=== PATIENT | male | born 1945 | race Caucasian/White ===

== ENCOUNTER 2017-03-05 08:45 | Day surgery (SDC) | payer MEDICARE, BC ==
[~2017-03-05] VITALS: Ht 170.2 cm; Wt 87.2 kg
[~2017-03-05 08:45] MED LIST: ASPI-496 PO; BACITRACIN 50,000 UNIT ONE; BUPIVACAINE/PF 0.5% ONE; EPINEPHRINE 1 MG/ML, 1ML ONE; LISI-167 PO; MULT1TAB13 PO; THROMBIN 5,000 UNIT VIAL TP ONE; VANCOMYCIN 1,000 MG ONE
[2017-03-05 09:06] VITALS: BP 150/88
[2017-03-05] MEDS ORDERED: LACTATED RINGERS 1,000 ML IV SCH (09:06)
[2017-03-05] MEDS ORDERED: FENTANYL PF 100 MCG/2ML ONE ×3 (12:20→14:30)
[2017-03-05] MEDS ORDERED: MIDAZOLAM 1 MG/ML, 2ML ONE (12:20)
[2017-03-05] MEDS ORDERED: CEFAZOLIN 1,000 MG ONE (13:00)
[2017-03-05] MEDS ORDERED: ROCURONIUM 10 MG/ML ONE (13:00)
[2017-03-05] MEDS ORDERED: PROPOFOL 10 MG/ML, 20ML ONE (13:00)
[2017-03-05] MEDS ORDERED: DEXAMETHASONE 4 MG/ML, 5ML ONE (13:00)
[2017-03-05] MEDS ORDERED: PHENYLEPHRINE 10 MG/ML ONE (13:00)
[2017-03-05] MEDS ORDERED: EPINEPHRINE 1 MG/ML, 1ML INFIL ONE (13:29)
[2017-03-05] MEDS ORDERED: BUPIVACAINE/PF 0.5% INFIL ONE (13:29)
[2017-03-05] MEDS ORDERED: HYDROmorphone 1 MG/ML, 1ML IV PRN (14:00)
[2017-03-05] MEDS ORDERED: hydrALAzine 20 MG/ML, 1ML IV PRN (14:00)
[2017-03-05] MEDS ORDERED: MEPERIDINE/PF 25MG/0.5ML IVPush PRN (14:00)
[2017-03-05] MEDS ORDERED: ACETAMINOPHEN 325 MG TABLET PO PRN (14:00)
[2017-03-05] MEDS ORDERED: OXYcodone 5 MG/5 ML ORAL.SOL UDC PO PRN (14:00)
[2017-03-05] MEDS ORDERED: FENTANYL PF 100 MCG/2ML IV PRN (14:00)
[2017-03-05] MEDS ORDERED: ONDANSETRON 2MG/ML, 2ML IVPush PRN (14:00)
[2017-03-05] MEDS ORDERED: PROMETHAZINE 25 MG/ML, 1ML IV PRN (14:00)
[2017-03-05] MEDS ORDERED: OXYcodone 5 MG/5 ML ORAL.SOL UDC ONE (14:31)
[2017-03-05] MEDS ORDERED: ACETAMINOPHEN 650 MG/20.3 ML UDC ONE (14:31)
[2017-03-05] MEDS: LABETALOL 5MG/ML, 20ML IV PRN ×2 (14:46→14:51)
[2017-03-05] MEDS ORDERED: hydrALAzine 20 MG/ML, 1ML ONE (15:02)
== END 2017-03-05 17:40 ==
LOC: OUT 08:45
PROVIDERS: ATTEND Neurological Surgery
DX: M48.06 Spinal stenosis, lumbar region (principal); M54.16 Radiculopathy, lumbar region; I10 Essential (primary) hypertension; Z79.82 Long term (current) use of aspirin; Z72.89 Other problems related to lifestyle
CPT/HCPCS: 63047; 63048; 72100; J0171; J0360; J0690; J1100; J2250; J2370; J2704; J3010; J3490; J7120; J3370